=== PATIENT | male | born 1970 | race Caucasian/White ===

== ENCOUNTER 2016-08-20 09:46 | Day surgery (SDC) ==
[2016-08-14 10:18] LABS: HEMOGLOBIN 14.8 g/dL (14.0-18.0); MCH 31.5 PG (27-31); MCHC 33.6 g/dL (33-37); MCV 93.6 FL (81-99); MPV 10.8 FL (7.4-10.4); RBC 4.7 XMIL (4.7-6.1)
--- NOTE | 2016-08-14 10:38 | EKG Report ---
Test Performed on : 08/14/2016 09:38:59 AM Test Reason : PAT Blood Pressure : / mmHG Vent. Rate : 090 BPM Atrial Rate : 090 BPM P-R Int : 154 ms QRS Dur : 094 ms QT Int : 406 ms P-R-T Axes : 043 027 058 degrees QTc Int : 496 ms Normal sinus rhythm. Prolonged QT Abnormal ECG When compared with ECG of 02-DEC-2015 22:35, No significant change was found Confirmed by Xuan CARIAS, Burak Sahni ([id number]) on 08/14/2016 4:49:01 PM
[2016-08-14 11:04] LABS: AGAP 14; BUN 14 mg/dL (8-22); CALCIUM 9.1 mg/dL (8.8-10.2); CHLORIDE 107 mmol/L (98-107); COSMO 288; POTASSIUM 3.7 mmol/L (3.5-5.1); SODIUM 145 mmol/L (136-145); TCO2 24 mmol/L (25-35)
[2016-08-20] MEDS ORDERED: KEFZOL 2 GM/D5W 0 ML ONE (10:09)
[2016-08-20] MEDS ORDERED: PEPCID ONE (10:09)
[2016-08-20] MEDS ORDERED: LR 1,000 ML ONE ×2 (10:09→12:18)
[2016-08-20] MEDS ORDERED: REGLAN ONE (10:09)
[2016-08-20] MEDS ORDERED: KEFZOL 2 GM/D5W 50 ML ONE (10:10)
[2016-08-20] MEDS ORDERED: MARCAINE 0.25% PF ONE (13:56)
[2016-08-20] MEDS ORDERED: DIPRIVAN 1% ONE (16:23)
[2016-08-20] MEDS ORDERED: VERSED ONE (16:23)
[2016-08-20] MEDS ORDERED: FENTANYL ONE ×2 (16:23→16:24)
[2016-08-20] MEDS ORDERED: MORPHINE ONE (16:29)
[2016-08-20] MEDS ORDERED: ZOFRAN ONE (16:34)
[2016-08-20] MEDS ORDERED: EPHEDRINE ONE (16:34)
[2016-08-20] MEDS ORDERED: NEOSTIGMINE ONE (16:34)
[2016-08-20] MEDS ORDERED: DECADRON ONE (16:35)
[2016-08-20] MEDS ORDERED: NORCURON ONE (16:35)
[2016-08-20] MEDS ORDERED: LR 2,000 ML ONE (16:35)
[2016-08-20] MEDS ORDERED: QUELICIN (DOSE) ONE (16:35)
[2016-08-20] MEDS ORDERED: ROBINUL ONE (16:35)
[2016-08-20] MEDS ORDERED: XYLOCAINE-MPF 2% ONE (16:35)
--- NOTE | 2016-08-20 16:51 | OPERATIVE NOTE ---
PROCEDURE DATE: 08/20/2016 PREOPERATIVE DIAGNOSIS: Right subacromial bursitis with partial rotator cuff tear. POSTOPERATIVE DIAGNOSES: 1. Right subacromial bursitis with partial rotator cuff tear. 2. 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 PROCEDURE: Arthroscopy of the right shoulder with bursectomy and arthroscopic rotator cuff repair. SURGEON: Enrique Vilchis MD MOTORCYCLE TECHNICIAN: BHAVNA Domínguez and Vimal Burdick RN ANESTHESIA: General. IV FLUIDS: 1700 mL lactated Ringer's. ESTIMATED BLOOD LOSS: 100 mL. COMPLICATIONS: None. INDICATION: The patient is a 45-year-old male chronic history of pain and discomfort of his right shoulder. He had continued pain and discomfort despite appropriate nonoperative treatment. The patient has had 3 previous arthroscopies, his last was a few years ago and underwent biceps tenodesis at the time. He did do well until several months ago and has had worsening pain and discomfort. MRI was obtained, revealed partial rotator cuff tear and recommendation to proceed with arthroscopy was offered. Risks and benefits of surgery were explained, including the risks of anesthesia, , bleeding, infection, failure to relieve pain, postop stiffness, nerve injury, blood clots, and other imponderables. All questions answered, patient and family wished to proceed. DESCRIPTION OF PROCEDURE: The patient was taken to the operating room and placed supine on the operating table. Once adequate anesthesia was obtained, the patient was placed in the left lateral decubitus position on a patton bag with axillary roll. Right shoulder was subsequently prepped and draped in usual sterile fashion, placed in 12 pounds of longitudinal traction. A standard posterior incision was made with an 11 blade, a blunt tip trocar with overlying cannula was introduced. The arthroscope was introduced. Anterior portal was then made. Inspection of the glenohumeral joint did reveal some evidence of chondromalacia grade 3 of the glenoid and humeral head light debridement was conducted and some fraying of the superior labrum was lightly debrided. The patient also had no evidence of loose body in the inferior pouch. The patient did have some degenerative changes, however. He had some thinning and what appeared to be the few remaining fibers on the anterior aspect of the supraspinatus tendon consistent with a partial tear. A spinal needle was used to s[place]ana this site intra-articularly. Attention was then turned to the subacromial space. The patient did have some adhesions and lateral incision made in standard fashion. Bursectomy was conducted as well as some lysis of adhesions. The spinal needle was then used to identify the area of thinning of the rotator cuff. A probe was introduced and was easily introduced. Given this finding, proceeded with arthroscopic rotator cuff tear. However, prior to this, did proceed with further bursectomy and lysis of adhesions. Had well-maintained subacromial space. A Passport cannula was placed in the lateral portal. Elevation of the rotator cuff few remaining fibers of the rotator cuff was performed. Light decortication was then conducted. A spinal needle was placed along the superior lateral aspect of the shoulder, this was followed by a small stab incision. A punch was then placed into the sulcus and a 5.5 mm Bio-Composite helical anchor. The suture was then passed and the Ultrabraid was tied. Upon placement of the suture anchor, the patient was noted to have some soft bone. Upon tying the anchor, the anchor was pulled upwards and was loose and therefore the suture was cut and they were removed as well as the anchor. A punch was then placed more medially along the sulcus and a 5.5 mm Bio-Composite helical anchor was then placed, had good purchase. Ultra tape was passed in a horizontal mattress fashion with a #2 Ultrabraid suture passed between the 2 limbs of the tape. The #2 Ultrabraid was tied. One limb from the Ultrabraid suture knot and the first Ultra tape limb was retrieved through the lateral portal. Using a 5.5 mm PEEK MultiFIX S anchor along the anterior lateral proximal humerus, the anchor was seated with tensioning of the sutures. The sutures were then cut. The remaining suture limbs retrieved out of the lateral portal and a second 5.5 mm PEEK MultiFIX S anchor was then placed more posteriorly in similar fashion, had good purchase. Sutures were cut, appeared to be a good repair. Arthroscope was then removed, 3-0 nylon was used to close the skin, 0.25% Marcaine without epinephrine was injected. Adaptic, sterile 4x4s, ABD pad, and tape was applied to the right shoulder, followed by shoulder immobilizer. All counts were correct. Patient tolerated the procedure well, he was transferred to recovery room in stable conditions. [facility]
[2016-08-20] MEDS ORDERED: PERCOCET-5 ONE (17:24)
[2016-08-20 18:51] VITALS: BP 186/85
== END 2016-08-20 17:55 | disposition home or self-care (01) ==
LOC: OPS 09:46
PROVIDERS: ATTEND Orthopaedic Surgery Adult Reconstructive Orthopaedic Surgery
DX: M75.51 Bursitis of right shoulder (principal); M75.111 Incomplete rotator cuff tear or rupture of right shoulder, not specified as traumatic; M94.211 Chondromalacia, right shoulder; I10 Essential (primary) hypertension; K21.9 Gastro-esophageal reflux disease without esophagitis; G47.33 Obstructive sleep apnea (adult) (pediatric); J44.9 Chronic obstructive pulmonary disease, unspecified; M19.90 Unspecified osteoarthritis, unspecified site; F32.9 Major depressive disorder, single episode, unspecified; F41.9 Anxiety disorder, unspecified; Z79.1 Long term (current) use of non-steroidal anti-inflammatories (NSAID); Z79.899 Other long term (current) drug therapy; Z86.73 Personal history of transient ischemic attack (TIA), and cerebral infarction without residual deficits; F17.210 Nicotine dependence, cigarettes, uncomplicated
CPT/HCPCS: 80048; 85027; 93005; 93010; J0330; J0690; J1100; J2250; J2270; J2405; J3010; J7120; J2710; S0020